=== PATIENT | female | born 1970 | race Caucasian/White ===

== ENCOUNTER → 2019-03-14 | Outpatient (CLI) | payer BC ==
[~2019-03-14] MED LIST: ALBU8HFA2 INH; ATOR20; CODGUAEL PO; CYCL10 PO; ERGO50000; ESCI20 PO; FAMO40 PO; FISH1000; FISH1000 PO; LORA.5; NAPR500 PO; Norco 10-325 T1 EACH PO; PRED10 PO; RXCYCL10 PO; Zofran Odt4 MG SL
[2019-03-14 15:15] LABS: Hematocrit 35.6 % (33.0-51.0); Hemoglobin 12.1 g/dL (11.5-16.0); Mean Corpuscular HGB 30.6 pg (26.0-34.0); Mean Corpuscular Volume 90 fL (80-100); Mean Platelet Volume 9.7 fL (9.1-12.4); Platelet Count 306 K/mm3 (150-400); RDW Coefficient Variation 12.6 % (11.7-14.2); RDW Standard Deviation 41.2 fL (35.1-46.3); Red Blood Cell Count 3.95 M/mm3 (3.80-5.20); White Blood Cell Count 6.62 K/mm3 (4.00-11.30)
[2019-03-14 15:35] LABS: Alanine Aminotransfer (ALT/SGP 63 U/L (12-78); Albumin, Blood 3.1 g/dL (3.4-5.0); Albumin/Globulin Ratio 0.7 (0.8-1.8); Alk Phos 97 U/L (40-126); Anion Gap 9 mmol/L (6-16); Aspartate Aminotrans (AST/SGOT 38 U/L (12-37); Bilirubin, Total 0.3 mg/dL (0.1-1.0); Blood Urea Nitrogen 11 mg/dL (8-24); Bun/Creatinine Ratio 11.7 (12.0-20.0); CO2, Blood 26 mmol/L (21-32); Calcium, Blood 8.3 mg/dL (8.5-10.1); Chloride, Blood 105 mmol/L (98-108); Creatinine, Blood 0.94 mg/dL (0.40-1.00); Globulin, Blood 4.3 g/dL (2.2-4.0); Glomerular Filtration Rate >60 (60-); Glucose, Blood 147 mg/dL (70-99); Potassium, Blood 3.9 mmol/L (3.5-5.5); Sodium, Blood 140 mmol/L (136-145); Thyroid Stimulating Hormone 2.091 uIU/mL (0.360-4.800); Total Protein, Blood 7.4 g/dL (6.4-8.2)
[2019-03-14 15:44] LABS: BAND PERCENT MAN 1 % (0-8); BASOPHILS PERCENT MAN 0 % (0-2); EOSINOPHILS PERCENT MAN 0 % (0-6); LYMPHOCYTES % ATYPICAL MANUAL 18 % (0-0); LYMPHOCYTES ABSOLUTE MAN 4.83 K/mm3 (0.84-5.20); LYMPHOCYTES PERCENT MAN 55 % (21-46); MONOCYTES ABSOLUTE MAN 0.13 K/mm3 (0.16-1.47); MONOCYTES PERCENT MAN 2 % (4-13); NEUTROPHILS ABSOLUTE MAN 1.65 K/mm3 (1.96-9.15); SEG NEUTROPHILS PERCENT MAN 24 % (41-73); TOTAL CELLS COUNTED 100
== END | disposition home or self-care (01) ==
LOC: LAB SHORT 15:11 → LAB EV 15:11
PROVIDERS: Family Medicine
DX: R00.2 Palpitations (principal)
CPT/HCPCS: 80053; 83735; 84443; 85025

== ENCOUNTER 2021-01-27 19:36 | Observation (INO) | payer OTHER ==
[~2021-01-27] VITALS: Ht 154.9 cm; Wt 70.3 kg
[2021-01-27 22:04] LABS: SARS-Cov-2 (COVID-19) PCR, MMC NEGATIVE (NEGATIVE)
--- NOTE | 2021-01-28 00:42 | NUR ---
2323 PATIENT ARRIVED TO ICU 1 FOR PACU, PATIENT RESPONDING TO SLIGHT STIMULI SPEECH SLIGHTLY SLURRED, BIOX HIGH 90'S ON RA. ROYER WRAP DRESSING CD&I TO LEFT KNEE. LEFT FOOT COOL TO TOUCH PEDAL PULSES 2+. 2350 PATIENT AWAKE AND RESTLESS DUE TO PAIN TO LEFT KNEE, FENTANYL IV GIVEN WITH RELIEF AFTER UP TO 100 MCG IV FENTANYL GIVEN. 0020 PATIENT MORE RELAXED AND SUSANNAH PO ICE CHIPS WITHOUT DIFFICULTY, ABLE TO SIT STILL IN BED AND ABLE TO ASSIST WITH GETTING ON BED STOKES TO URINATE. REPORT CALLED TO SERGIO SAUCEDO AND PATIENT TRANSFERRED TO [facility] AT 0045
--- NOTE | 2021-01-28 07:47 | NUR ---
SHIFT SUMMARY POD1 L KNEE I&D, A/O X4, VSS, TOLERATING PO, PAIN WELL MANAGED PER EMAR, MED DRAWN VIA OVERRIDE DUE TO INABILITY TO ACCESS PT PROFILE IN THE [facility], MED GIVEN WAS ONE THAT WAS ORDERED BY ADMITTING NO ACUTE EVENTS THIS SHIFT. CALL LIGHT IN REACH, REPORT GIVEN TO DAY RN.
[2021-01-28] MEDS ORDERED: ASPI81CH PO (08:02)
[2021-01-28] MEDS ORDERED: Percocet 5-3251 EACH PO (08:02)
[2021-01-28] MEDS ORDERED: SULTRIDS PO (08:03)
--- NOTE | 2021-01-28 10:11 | NUR ---
DISCHARGE POD1 L KNEE I&D. AA0X4, PT REPORTS PAIN IN KNEE THAT INCREASES WITH MOVEMENT, REPORTS FEELING STIFF BUT IMPROVING WITH MOVEMENT. NUMBNESS IN LEFT TOES AND COLDNESS REPORTED TO LORETA FAYE. LOOSENED ROYER WRAP AND PT REPORTS FEELING OF NUMBNESS SUBSIDING AND WARMTH INCREASING. PAIN MANAGED PER EMAR. PT DISCHARGE WITH ALL SCRIPTS. DC INSTRUCTIONS GONE OVER WITH PATIENT AND FAMILY MEMBER. IV REMOVED PRIOR TO DISCHARGE. PT TOLERATING PO WELL. PLANS TO FOLLOW UP WITH PHYSICIAN IN 2-3 DAYS OUTPATIENT.
--- NOTE | 2021-01-29 08:01 | NUR ---
01/29/21 0801 Luz Patel VERIFICATIONS: EDIT CHART.
== END 2021-01-28 10:14 | disposition home or self-care (01) ==
LOC: ER 19:36 → ICUW 19:37 → ER 21:51 → ICUE 23:27 → SURS 01-28 00:40
PROVIDERS: Emergency Medicine; ADMIT Orthopaedic Surgery
PROC: 0SJD0ZZ Inspection of Left Knee Joint, Open Approach (ICD-10-PCS; principal; 2021-01-27 21:00)
DX: S81.012A Laceration without foreign body, left knee, initial encounter (principal); V29.88XA Motorcycle rider (driver) (passenger) injured in other specified transport accidents, initial encounter; F32.9 Major depressive disorder, single episode, unspecified; F17.200 Nicotine dependence, unspecified, uncomplicated; Z20.822 Contact with and (suspected) exposure to COVID-19
CPT/HCPCS: 73564; 81025; 90471; 90714; 96365; 96375; 96376; 99284-25; A9270; G0378; J0690; J1100; J1170; J2250; J2270; J2370; J2405; J2704; J3010; U0004

== ENCOUNTER 2021-10-04 10:32 | Day surgery (SDC) | payer OTHER ==
[~2021-10-04] VITALS: Ht 154.9 cm; Wt 63.9 kg
[~2021-10-04 10:32] MED LIST changes: +ASPI81CH PO; +Percocet 5-3251 EACH PO; +SULTRIDS PO
--- NOTE | 2021-10-04 11:38 | NUR ---
History, Chart, Medications and Allergies reviewed before start of procedure.Lungs clear T/O to Auscultation. Patient confirms NPO status and agrees with scheduled surgery. Pre-Op teaching done. Pt verbalizes understanding. Patient States Post-Procedure ride home has been arranged.
--- NOTE | 2021-10-04 13:35 | NUR ---
10/04/21 1335 Vasu Kramer History, Chart, Medications and Allergies reviewed before start of procedure. Patient confirms NPO status and agrees with scheduled surgery. 3-LEAD EKG REVIEWED WITH PHYSICIAN PRIOR TO START OF PROCEDURE. MONITOR INTACT WITH CONTINUOUS PULSE OXIMETRY AND INTERMITTENT BP. PATIENT DETERMINED TO BE ASA APPROPRIATE FOR PROPOFOL SEDATION PRIOR TO START OF PROCEDURE BY DR. PEÑA.
--- NOTE | 2021-10-04 15:27 | NUR ---
PATIENT ABLE TO REPOSITION SELF IN BED. SHE IS RESTING COMFORTABLY IN BED. AT BEDSIDE.
--- NOTE | 2021-10-04 15:49 | NUR ---
Ambulatory in Day Surgery. Discharge instructions reviewed with patient. Patient verbalizes understanding. Copy given to patient to take home. Patient States Post-Procedure ride home has been arranged. Discharged via wheelchair to private car for ride home. ALL BELONGINGS RETURNED TO PATIENT, TO INCLUDE A CELL PHONE AND A CELL PHONE DRESS CUTTER.
== END 2021-10-04 23:05 | disposition home or self-care (01) ==
LOC: ORSCMMR 10:32 → ORD 11:15 → ORSCMMR 11:45
PROVIDERS: Surgery
PROC: 0DJD8ZZ Inspection of Lower Intestinal Tract, Via Natural or Artificial Opening Endoscopic (ICD-10-PCS; principal; 2021-10-04 11:45)
DX: K62.89 Other specified diseases of anus and rectum (principal); D37.4 Neoplasm of uncertain behavior of colon; R19.4 Change in bowel habit; K57.30 Diverticulosis of large intestine without perforation or abscess without bleeding; E78.5 Hyperlipidemia, unspecified; F41.8 Other specified anxiety disorders; Z79.899 Other long term (current) drug therapy; Z87.891 Personal history of nicotine dependence
CPT/HCPCS: J2704; J7120

== ENCOUNTER → 2024-11-08 | Outpatient (CLI) | payer OTHER | LOC: LAB 08:00 → LAB SHORT 08:00 | DX: N39.0 Urinary tract infection, site not specified (principal); R35.0 Frequency of micturition; R30.0 Dysuria | CPT/HCPCS: 87086 ==